=== PATIENT | male | born 1955 | race Caucasian/White ===

== ENCOUNTER 2018-02-27 19:20 | Emergency (ER) | payer MEDICAID, OTHER, SELFPAY ==
[~2018-02-27] VITALS: Ht 180.3 cm; Wt 77.2 kg
[2018-02-27 19:29] VITALS: BP 117/77
[2018-02-27] MEDS ORDERED: HYDROcodone/APAP 5/325 TABLET PO STA (20:01)
[2018-02-27] MEDS ORDERED: HYDROcodone/APAP 5/325 TABLET ONE (20:06)
== END 2018-02-27 21:13 | disposition home or self-care (01) ==
LOC: ED 21:07
DX: S63.521A Sprain of radiocarpal joint of right wrist, initial encounter (principal); S63.511A Sprain of carpal joint of right wrist, initial encounter; I10 Essential (primary) hypertension; M19.90 Unspecified osteoarthritis, unspecified site; F17.200 Nicotine dependence, unspecified, uncomplicated; V87.8XXA Person injured in other specified noncollision transport accidents involving motor vehicle (traffic), initial encounter; Y93.89 Activity, other specified; Y92.89 Other specified places as the place of occurrence of the external cause; Y99.8 Other external cause status
CPT/HCPCS: 29125; 99284

== ENCOUNTER 2018-06-17 10:52 | Emergency (ER) | payer MEDICAID ==
[~2018-06-17] VITALS: Ht 180.3 cm; Wt 76.8 kg
[2018-06-17] MEDS ORDERED: IBUPROFEN 200 MG TABLET ONE (11:21)
[2018-06-17] MEDS ORDERED: IBUPROFEN 200 MG TABLET PO ONE (11:30)
[2018-06-17] MEDS ORDERED: GABA600T7 PO (11:46)
[2018-06-17 11:47] VITALS: BP 115/82
== END 2018-06-17 12:09 | disposition home or self-care (01) ==
LOC: ED 11:34
DX: S63.522A Sprain of radiocarpal joint of left wrist, initial encounter (principal); M19.90 Unspecified osteoarthritis, unspecified site; I10 Essential (primary) hypertension; W19.XXXA Unspecified fall, initial encounter; Y93.89 Activity, other specified; Y92.89 Other specified places as the place of occurrence of the external cause; Y99.8 Other external cause status
CPT/HCPCS: 29125; 99283

== ENCOUNTER 2018-10-01 17:16 | Emergency (ER) | payer MEDICAID ==
[~2018-10-01] VITALS: Ht 180.3 cm; Wt 76.5 kg
[~2018-10-01 17:16] MED LIST: GABA600T7 PO
[2018-10-01 17:32] VITALS: BP 143/79
== END 2018-10-01 18:38 | disposition home or self-care (01) ==
LOC: ED 18:33
DX: M25.532 Pain in left wrist (principal); F17.200 Nicotine dependence, unspecified, uncomplicated
CPT/HCPCS: 99281

== ENCOUNTER 2020-05-17 12:12 | Emergency (ER) | payer MEDICAID ==
[~2020-05-17] VITALS: Ht 180.3 cm; Wt 74.2 kg
[2020-05-17 12:31] VITALS: BP 108/67
[2020-05-17] MEDS ORDERED: DEXAMETHASONE 4 MG TABLET ONE (14:15)
[2020-05-17] MEDS ORDERED: DEXAMETHASONE 4 MG TABLET PO ONE (14:30)
== END 2020-05-17 15:25 | disposition home or self-care (01) ==
LOC: ED 14:32
DX: U07.1 COVID-19 (principal); J36 Peritonsillar abscess; I10 Essential (primary) hypertension; F17.200 Nicotine dependence, unspecified, uncomplicated
CPT/HCPCS: 87081; 87147; 87635; 87880; 99283